=== PATIENT | female | born 1970 ===

== ENCOUNTER 2017-09-06 02:51 | Emergency (ER) | payer OTHER ==
[2017-09-06 03:22] VITALS: BMI 24.7
[2017-09-06 03:25] VITALS: BP 147/89; PULSE 83; RESP 18; TEMP 98.7; O2SAT 98
--- NOTE | 2017-09-06 04:41 | ED PDOC ---
HPI: Skin/Bite Injury Time Seen by Provider: 09/06/17 04:11 Chief Complaint (Nursing): Abnormal Skin Integrity Chief Complaint (Provider): Abnormal Skin Integrity History Per: Patient History/Exam Limitations: no limitations Current Symptoms Are (Timing): Still Present Additional Complaint(s): 46 y/o female presents to the ED with generalized itchy rash that started yesterday afternoon. 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 Denies new exposures, new foods, drinks, medications, cream, and lotions. Denies pet in house. Denies difficulty breathing, fever or any further medical complaints. Past Medical History Reviewed: Historical Data, Nursing Documentation, Vital Signs Vital Signs: Last Vital Signs Temp 98.7 F 09/06/17 03:23 Pulse 83 09/06/17 03:23 Resp 18 09/06/17 03:23 BP 147/89 09/06/17 03:23 Pulse Ox 98 09/06/17 04:45 - Medical History PMH: No Chronic Diseases - Surgical History Surgical History: No Surg Hx - Family History Family History: States: Unknown Family Hx - Social History Current smoker - smoking cessation education provided: No Alcohol: None Drugs: Denies - Home Medications Home Medications: Ambulatory Orders Medication Instructions Recorded DiphenhydrAMINE [Benadryl] 50 mg PO DAILY PRN #12 cap 09/06/17 predniSONE [predniSONE Tab] 40 mg PO DAILY 2 Days tab 09/06/17 - Allergies Allergies/Adverse Reactions: Allergies Allergy/AdvReac Type Severity Reaction Status Date / Time No Known Allergies Allergy Verified 09/06/17 03:22 Review of Systems ROS Statement: Except As Marked, All Systems Reviewed And Found Negative (As per HPI, otherwise negative) Skin: Positive for: Rash (generalized itchy rash ) Physical Exam - Reviewed Nursing Documentation Reviewed: Yes Vital Signs Reviewed: Yes - Physical Exam Appears: Positive for: Well, Non-toxic, No Acute Distress Head Exam: Positive for: ATRAUMATIC, NORMAL INSPECTION, NORMOCEPHALIC Skin: Positive for: Rash (diffuse urticarial rash, glochy, no facial involvement ) Eye Exam: Positive for: Normal appearance ENT: Positive for: Normal ENT Inspection, Other (oropharynx clear) Neck: Positive for: Normal, Painless ROM, Supple Cardiovascular/Chest: Positive for: Regular Rate, Rhythm. Negative for: Murmur Respiratory: Positive for: Normal Breath Sounds. Negative for: Accessory Muscle Use, Respiratory Distress Gastrointestinal/Abdominal: Positive for: Normal Exam, Soft. Negative for: Tenderness Back: Positive for: Normal Inspection Extremity: Positive for: Normal ROM. Negative for: Deformity Neurologic/Psych: Positive for: Alert, Oriented (x3) - ECG O2 Sat by Pulse Oximetry: 98 (RA) Pulse Ox Interpretation: Normal Medical Decision Making Medical Decision Making: Time: 04:17 Initial Impression: urticaria Plan: Benadryl 50mg PO Prednisone 40mg PO Time: 04:30 Upon provider reevaluation patient is feeling better, is medically stable, and requires no further treatment in the ED at this time. Patient will be discharged home . Counseling was provided and all questions were answered regarding diagnosis. There is agreement to discharge plan. Return if symptoms persist or worsen. Clinical Impression: urticaria Scribe Attestation: Documented by Rosina Gould acting as a scribe for Jarrod Deluna MD. Scribe Attestation: All medical record entries made by the Scribe were at my direction and personally dictated by me. I have reviewed the chart and agree that the record accurately reflects my personal performance of the history, physical exam, medical decision making, and the department course for this patient. I have also personally directed, reviewed, and agree with the discharge instructions and disposition. Disposition - Clinical Impression Clinical Impression: Urticaria - Disposition Referrals: [facility] [Outside] Disposition: Routine/Home Disposition Time: 04:30 Condition: GOOD Prescriptions: DiphenhydrAMINE [Benadryl] 50 mg PO DAILY PRN #12 cap PRN Reason: Itching / Pruritus predniSONE [predniSONE Tab] 40 mg PO DAILY 2 Days tab Instructions: Urticaria (ED) Forms: [employer] (Mongolian) Print Language: ITALIAN
== END 2017-09-06 04:51 | disposition home or self-care (01) ==
LOC: H.ER 02:51
DX: L50.9 Urticaria, unspecified (principal)